=== PATIENT | female | born 1990 | race African-American/Black ===

== ENCOUNTER 2022-04-24 11:05 | Outpatient (CLI) | payer SELFPAY ==
[2022-04-24 12:21] VITALS: BP 104/64
== END 2022-04-24 23:59 | disposition home or self-care (01) ==
LOC: TRG 11:05 → UNDODISOB 13:35 → TRG 23:59 → EDSTATUS 06-24 09:18
PROVIDERS: ATTEND Obstetrics & Gynecology
DX: O46.93 Antepartum hemorrhage, unspecified, third trimester (principal); Z3A.41 41 weeks gestation of pregnancy
CPT/HCPCS: 59025; G0378; G0379

== ENCOUNTER 2022-04-25 16:02 | Inpatient (IN) | payer SELFPAY ==
[2022-04-25] MEDS ORDERED: LACTATED RINGERS 1,000 ML ONE (17:30)
[2022-04-25] MEDS ORDERED: AMPICILLIN/NS 2 GM/100 ML 2 GM/100 ML BAG IV ONE ×2 (17:31→18:18)
[2022-04-25] MEDS ORDERED: METHYLERGONOVINE MALEATE 0.2 MG/ML VIAL IM PRN (18:18)
[2022-04-25] MEDS ORDERED: CARBOPROST TROMETHAMINE 250 MCG/1 ML INJ IM PRN (18:18)
[2022-04-25] MEDS ORDERED: LIDOCAINE (2%) 20 MG/1 ML VIAL 20 ML MDV INFILTRATI ONE ×2 (18:18→22:50)
[2022-04-25] MEDS ORDERED: OXYTOCIN 10 UNIT/1 ML INJ IM PRN (18:18)
[2022-04-25] MEDS ORDERED: ONDANSETRON 4 MG/2 ML INJ IV PRN (18:18)
[2022-04-25] MEDS ORDERED: TERBUTALINE 1 MG/1 ML INJ SUB-Q PRN (18:18)
[2022-04-25] MEDS ORDERED: MINERAL OIL 30 ML ORAL LIQD PO PRN (18:18)
[2022-04-25] MEDS ORDERED: LOPERAMIDE 2 MG CAP PO PRN (18:18)
[2022-04-25] MEDS ORDERED: ACETAMINOPHEN 325 MG TAB PO PRN (18:18)
[2022-04-25] MEDS ORDERED: ePHEDrine SULFATE 50 MG/1 ML INJ IV PRN (18:18)
[2022-04-25] MEDS ORDERED: NALOXONE 0.4 MG/1 ML INJ IV PRN (18:18)
[2022-04-25] MEDS ORDERED: miSOPROStol 200 MCG TAB PR PRN (18:18)
[2022-04-25] MEDS ORDERED: BUTORPHANOL 2 MG/1 ML INJ IV PRN ×2 (18:18)
--- NOTE | 2022-04-25 18:28 | History and Physical Report ---
History of Present Illness Date of examination: 04/25/22 Date of admission: 04/25/22 16:02 Chief complaint: Presents for scheduled Postdates Induction History of present illness: Care at [facility] [employer]; course complicated by +Chlamydia (treated with Negative GI); and Size less than Dates. Past History Past Medical History: no pertinent history Past Surgical History: no surgical history EDI SPECIALIST History: chlamydia Family/Genetic History: none Social history: no significant social history - Obstetrical History Expected Date of Delivery: 04/17/22 Actual Gestation: 41 Week(s) 1 Day(s) : 1 Medications and Allergies Allergies Allergy/AdvReac Type Severity Reaction Status Date / Time No Known Allergies Allergy Unverified 04/24/22 12:32 Active Meds: Active Medications Acetaminophen (Acetaminophen 325 Mg Tab) 650 mg PO Q4H PRN PRN Reason: Pain, Mild (1-3) Butorphanol Tartrate (Butorphanol 2 Mg/1 Ml Inj) 1 mg IV Q2H PRN PRN Reason: Pain, Moderate(4-6) LABOR PAIN Butorphanol Tartrate (Butorphanol 2 Mg/1 Ml Inj) 2 mg IV Q2H PRN PRN Reason: Pain , Severe (7-10) Carboprost Tromethamine (Carboprost Tromethamine 250 Mcg/1 Ml Inj) 250 mcg IM ONCE PRN PRN Reason: Uterine Bleeding Ephedrine Sulfate (Ephedrine Sulfate 50 Mg/1 Ml Inj) 10 mg IV Q2M PRN PRN Reason: Hypotension Oxytocin/Sodium Chloride (Pitocin/Ns 30 Unit/500ml) 30 units in 500 mls @ 2 mls/hr IV TITR MARIVEL; Protocol Lactated Ringer's (Lactated Ringers) 1,000 mls @ 125 mls/hr IV DIRECT MARIVEL Oxytocin/Sodium Chloride (Pitocin/Ns 30 Unit/500ml) 30 units in 500 mls @ 40 mls/hr IV TITR MARIVEL; Protocol Ampicillin Sodium (Ampicillin/Ns 1 Gm/50 Ml) 1 gm in 50 mls @ 100 mls/hr IV Q4H MARIVEL; Protocol Ampicillin Sodium (Ampicillin/Ns 2 Gm/100 Ml) 2 gm in 100 mls @ 100 mls/hr IV ONCE ONE; Protocol Stop: 04/25/22 19:17 Lidocaine (Lidocaine (2%) 20 Mg/1 Ml Vial 20 Ml Mdv) 20 ml INFILTRATI ONCE ONE Stop: 04/25/22 18:19 Loperamide HCl (Loperamide 2 Mg Cap) 2 mg PO ONCE PRN PRN Reason: give with Hemabate Methylergonovine Maleate (Methylergonovine Maleate 0.2 Mg/Ml Vial) 0.2 mg IM ONCE PRN PRN Reason: Uterine Bleeding Mineral Oil (Mineral Oil 30 Ml Oral Liqd) 30 ml PO QHS PRN PRN Reason: Constipation Misoprostol (Misoprostol 200 Mcg Tab) 800 mcg MS ONCE PRN PRN Reason: Uterine Bleeding Naloxone HCl (Naloxone 0.4 Mg/1 Ml Inj) 0.1 mg IV Q2MIN PRN PRN Reason: Res Rate </= 8 or 02 SAT < 92% Ondansetron HCl (Ondansetron 4 Mg/2 Ml Inj) 4 mg IV Q8H PRN PRN Reason: Nausea And Vomiting Oxytocin (Oxytocin 10 Unit/1 Ml Inj) 10 unit IM ONCE PRN PRN Reason: Uterine Bleeding Terbutaline Sulfate (Terbutaline 1 Mg/1 Ml Inj) 0.25 mg SUB-Q ONCE PRN PRN Reason: Hyperstimulation/Hypertonicity Review of Systems All systems: negative - Vital Signs Vital signs: Vital Signs Pulse BP Pulse Ox 100 H 109/67 95 04/25/22 16:40 04/25/22 16:40 04/25/22 16:40 Temp Pulse Resp BP Pulse Ox 97.9 F 93 H 16 109/67 96 04/25/22 17:50 04/25/22 18:20 04/25/22 17:50 04/25/22 17:50 04/25/22 18:20 - Physical Exam Breasts: Positive: normal Cardiovascular: Regular rate Lungs: Positive: Clear to auscultation, Normal air movement Abdomen: Positive: normal appearance, soft, normal bowel sounds Genitourinary (Female): Positive: normal external genitalia, normal perenium Vagina: Positive: normal moisture Uterus: Positive: enlarged Anus/Rectum: Positive: normal perianal skin Extremities: Positive: normal - Obstetrical FHR: category 1 Uterine Contraction Monitor Mode: External Cervical Dilatation: 6 Cervical Effacement Percentage: 80 station: 0 Uterine Contraction Frequency (min): 5 Uterine Contraction Pattern: Regular Uterine Tone Measurement Phase: Resting Uterine Contraction Intensity: Moderate Results All other labs normal. Assessment and Plan A: IUP @41 1/ Weeks Category I Tracing GBS Unknown P: Admit to L&D Per Routine Orders Pitocin Augmentation GBS Prophylaxis
[2022-04-25] MEDS ORDERED: LACTATED RINGERS 1,000 ML IV SCH (18:30)
[2022-04-25 18:59] LABS: Hemoglobin 12.3 gm/dl (10.1-14.3); Mean Corpuscular HGB Conc 33 % (30-34); Mean Corpuscular Volume 93 fl (79-97); Platelet Count 150 K/mm3 (140-440); Red Blood Count 3.97 M/mm3 (3.65-5.03); Red Cell Distribution Width 13.9 % (13.2-15.2)
[2022-04-25] MEDS ORDERED: OXYTOCIN DRIP 30 UNITS/500 ML BAG IV SCH ×2 (19:00)
--- NOTE | 2022-04-25 21:13 | Progress Note ---
Assessment and Plan A: IUP @41 1/7 Weeks Category I Tracing GBS Unknown P: Continue Pitocin Augmentation Continue GBS Prophylaxis AROM Subjective - Subjective Date of service: 04/25/22 Interval history: Care at [facility] [employer] [employer]; course complicated by +Chlamydia (treated with Negative GI); and Size less than Dates. Patient reports: movement normal, contractions Objective - Vital Signs Vital Signs: Vital Signs - 12hr 04/25/22 04/25/22 04/25/22 16:40 16:45 16:50 Temperature Pulse Rate 100 H 100 H 97 H Respiratory Rate Blood Pressure 109/67 Blood Pressure [Right] O2 Sat by Pulse 95 96 95 Oximetry O2 Sat by Pulse Oximetry [ Bilateral] 04/25/22 04/25/22 04/25/22 16:51 16:55 17:00 Temperature Pulse Rate 102 H 90 93 H Respiratory Rate Blood Pressure Blood Pressure [Right] O2 Sat by Pulse 94 96 96 Oximetry O2 Sat by Pulse Oximetry [ Bilateral] 04/25/22 04/25/22 04/25/22 17:05 17:10 17:15 Temperature Pulse Rate 95 H 99 H 99 H Respiratory Rate Blood Pressure Blood Pressure [Right] O2 Sat by Pulse 94 96 95 Oximetry O2 Sat by Pulse Oximetry [ Bilateral] 04/25/22 04/25/22 04/25/22 17:19 17:20 17:25 Temperature Pulse Rate 94 H 96 H 99 H Respiratory Rate Blood Pressure Blood Pressure [Right] O2 Sat by Pulse 94 95 95 Oximetry O2 Sat by Pulse Oximetry [ Bilateral] 04/25/22 04/25/22 04/25/22 17:30 17:31 17:35 Temperature Pulse Rate 96 H 92 H 96 H Respiratory Rate Blood Pressure Blood Pressure [Right] O2 Sat by Pulse 95 94 95 Oximetry O2 Sat by Pulse Oximetry [ Bilateral] 04/25/22 04/25/22 04/25/22 17:37 17:40 17:45 Temperature Pulse Rate 92 H 89 91 H Respiratory Rate Blood Pressure Blood Pressure [Right] O2 Sat by Pulse 94 96 95 Oximetry O2 Sat by Pulse Oximetry [ Bilateral] 04/25/22 04/25/22 04/25/22 17:50 17:51 17:55 Temperature 97.9 F Pulse Rate 89 95 H 87 Respiratory 16 Rate Blood Pressure Blood Pressure 109/67 [Right] O2 Sat by Pulse 98 94 96 Oximetry O2 Sat by Pulse Oximetry [ Bilateral] 04/25/22 04/25/22 04/25/22 18:00 18:05 18:10 Temperature Pulse Rate 94 H 90 98 H Respiratory Rate Blood Pressure Blood Pressure [Right] O2 Sat by Pulse 96 95 96 Oximetry O2 Sat by Pulse Oximetry [ Bilateral] 04/25/22 04/25/22 04/25/22 18:15 18:20 18:25 Temperature Pulse Rate 82 93 H 87 Respiratory Rate Blood Pressure Blood Pressure [Right] O2 Sat by Pulse 97 96 96 Oximetry O2 Sat by Pulse 98 Oximetry [ Bilateral] 04/25/22 04/25/22 04/25/22 18:30 18:35 18:37 Temperature Pulse Rate 88 92 H 88 Respiratory Rate Blood Pressure Blood Pressure [Right] O2 Sat by Pulse 96 96 94 Oximetry O2 Sat by Pulse Oximetry [ Bilateral] 04/25/22 04/25/22 04/25/22 18:40 18:45 18:50 Temperature Pulse Rate 92 H 91 H 93 H Respiratory Rate Blood Pressure Blood Pressure [Right] O2 Sat by Pulse 93 94 94 Oximetry O2 Sat by Pulse Oximetry [ Bilateral] 04/25/22 04/25/22 04/25/22 18:51 18:55 18:56 Temperature Pulse Rate 93 H 92 H 93 H Respiratory Rate Blood Pressure Blood Pressure [Right] O2 Sat by Pulse 94 95 94 Oximetry O2 Sat by Pulse Oximetry [ Bilateral] 04/25/22 04/25/22 04/25/22 19:00 19:03 19:05 Temperature Pulse Rate 91 H 99 H 92 H Respiratory Rate Blood Pressure Blood Pressure [Right] O2 Sat by Pulse 95 94 94 Oximetry O2 Sat by Pulse Oximetry [ Bilateral] 04/25/22 04/25/22 04/25/22 19:10 19:15 19:17 Temperature Pulse Rate 90 96 H 95 H Respiratory Rate Blood Pressure Blood Pressure [Right] O2 Sat by Pulse 95 95 94 Oximetry O2 Sat by Pulse Oximetry [ Bilateral] 04/25/22 04/25/22 04/25/22 19:20 19:23 19:25 Temperature Pulse Rate 92 H 79 Respiratory Rate Blood Pressure Blood Pressure [Right] O2 Sat by Pulse 95 96 Oximetry O2 Sat by Pulse 95 Oximetry [ Bilateral] 04/25/22 04/25/22 04/25/22 19:26 19:27 19:30 Temperature Pulse Rate 80 78 76 Respiratory Rate Blood Pressure 95/56 Blood Pressure [Right] O2 Sat by Pulse 94 97 Oximetry O2 Sat by Pulse Oximetry [ Bilateral] 04/25/22 04/25/22 04/25/22 19:32 19:35 19:39 Temperature Pulse Rate 98 H 83 86 Respiratory Rate Blood Pressure Blood Pressure [Right] O2 Sat by Pulse 91 96 94 Oximetry O2 Sat by Pulse Oximetry [ Bilateral] 04/25/22 04/25/22 04/25/22 19:40 19:45 19:49 Temperature Pulse Rate 83 81 88 Respiratory Rate Blood Pressure Blood Pressure [Right] O2 Sat by Pulse 95 95 94 Oximetry O2 Sat by Pulse Oximetry [ Bilateral] 04/25/22 04/25/22 04/25/22 19:50 19:55 20:00 Temperature Pulse Rate 92 H 87 77 Respiratory Rate Blood Pressure Blood Pressure [Right] O2 Sat by Pulse 95 95 96 Oximetry O2 Sat by Pulse Oximetry [ Bilateral] 04/25/22 04/25/22 04/25/22 20:05 20:10 20:15 Temperature Pulse Rate 77 79 73 Respiratory Rate Blood Pressure Blood Pressure [Right] O2 Sat by Pulse 96 96 96 Oximetry O2 Sat by Pulse Oximetry [ Bilateral] 04/25/22 04/25/22 04/25/22 20:20 20:22 20:25 Temperature Pulse Rate 78 79 77 Respiratory Rate Blood Pressure Blood Pressure [Right] O2 Sat by Pulse 96 94 95 Oximetry O2 Sat by Pulse Oximetry [ Bilateral] 04/25/22 04/25/22 04/25/22 20:27 20:28 20:30 Temperature Pulse Rate 78 77 78 Respiratory Rate Blood Pressure 104/61 Blood Pressure [Right] O2 Sat by Pulse 93 96 Oximetry O2 Sat by Pulse Oximetry [ Bilateral] 04/25/22 04/25/22 04/25/22 20:34 20:35 20:39 Temperature Pulse Rate 77 76 86 Respiratory Rate Blood Pressure Blood Pressure [Right] O2 Sat by Pulse 93 96 94 Oximetry O2 Sat by Pulse Oximetry [ Bilateral] 04/25/22 04/25/22 04/25/22 20:40 20:45 20:47 Temperature Pulse Rate 84 89 87 Respiratory Rate Blood Pressure Blood Pressure [Right] O2 Sat by Pulse 96 95 94 Oximetry O2 Sat by Pulse Oximetry [ Bilateral] 04/25/22 04/25/22 04/25/22 20:50 20:55 21:00 Temperature Pulse Rate 86 80 84 Respiratory Rate Blood Pressure Blood Pressure [Right] O2 Sat by Pulse 95 96 97 Oximetry O2 Sat by Pulse Oximetry [ Bilateral] 04/25/22 04/25/22 21:05 21:09 Temperature 97.9 F Pulse Rate 83 Respiratory 18 Rate Blood Pressure Blood Pressure [Right] O2 Sat by Pulse 97 96 Oximetry O2 Sat by Pulse Oximetry [ Bilateral] - Exam Breasts: normal Cardiovascular: Regular rate Lungs: Normal air movement Abdomen: Present: soft, normal bowel sounds Uterus: Present: normal, firm, fundal height above umbilicus FHR: category 1 Uterine Contraction Monitor Mode: External Cervical Dilatation: 6.5 (AROM of a small amount of blood tinged fluids @2105) Cervical Effacement Percentage: 80 station: 0 Uterine Contraction Frequency (min): 2-3 Uterine Contraction Pattern: Regular Uterine Tone Measurement Phase: Resting Uterine Contraction Intensity: Moderate Extremities: normal - Labs Labs: Abnormal Labs 04/25/22 Unknown WBC 11.2 H Laboratory Results - last 24 hr 04/25/22 04/25/22 Unknown Unknown WBC 11.2 H RBC 3.97 Hgb 12.3 Hct 37.0 MCV 93 MCH 31 MCHC 33 RDW 13.9 Plt Count 150 Blood Type A POSITIVE Antibody Screen Negative
[2022-04-25] MEDS ORDERED: AMPICILLIN/NS 1 GM/50 ML 1 GM/50 ML BAG IV SCH (23:00)
--- NOTE | 2022-04-25 23:06 | Procedure Note ---
OB Delivery Note - Delivery Date of Delivery: 04/25/22 Care Team Assistant: JANET SEGURA - Vaginal Delivery presentation: vertex Delivery position: OA Delivery augmentation: rupture of membranes, pitocin Delivery monitor: external FHT, external uterine Route of delivery: Delivery placenta: spontaneous Delivery cord: 3 umbilical vessels Episiotomy: none Delivery laceration: 1st degree Delivery repair: vicryl Anesthesia: local, intravenous Delivery comments: Pt cried out urge to push. Primary RN called any available provider to room. Upon entering room, pt moaning, lying right lateral. Vomited, then began to bear down spontaneously, repositioned from right lateral to supine -head already delivered, shoulders and body delivered by this specifications writer without difficulty. of vigorous female , stimulated, dried and placed to maternal abdomen, mouth bulb suctioned by nurse, delayed cord clamping x3 min, 3vc doubly clamped and cut by FOB. pitocin initiated. Intact delivery of [place] placenta. Inspection of perineum revealed 1st degree laceration, repaired with 3.0CT vicryl with 14mL of % lidocaine. EBL: 200mL. Fundus firm, 2/U, bleeding scant, no clots. Counts performed with primary RN x2 and correct x2. YRIS Araiza updated. - A at 1 minute: 8 at 5 minutes: 9 Infant Gender: Female (6#9oz)
[2022-04-26] MEDS ORDERED: diphenhydrAMINE 25 MG CAP PO PRN (01:31)
[2022-04-26] MEDS ORDERED: PROMETHAZINE 25 MG TAB PO PRN (01:31)
[2022-04-26] MEDS ORDERED: MAGNESIUM HYDROXIDE (MOM) ORAL LIQD UDC PO PRN (01:31)
[2022-04-26] MEDS ORDERED: ONDANSETRON 4 MG/2 ML INJ IV PRN (01:31)
[2022-04-26] MEDS ORDERED: BENZOCAINE/MENTHOL 20/0.5% TOP SPRAY 56 GM TP PRN (01:31)
[2022-04-26] MEDS ORDERED: LANOLIN/ZINC/DIMETHICONE (LANSINOH) 7 GM TP PRN (01:31)
[2022-04-26] MEDS ORDERED: WITCH HAZEL/ GLYCERIN PAD TP PRN (01:31)
[2022-04-26] MEDS: IBUPROFEN 800 MG TAB PO SCH ×4 (01:44→23:50)
[2022-04-26] MEDS: PRENATAL VIT27-FE FUMARATE-FOLIC ACID VIT TAB PO SCH (12:33)
--- NOTE | 2022-04-26 15:20 | Progress Note ---
Assessment and Plan A: PPD0 OF VIABLE BABY GIRL 1ST DEGREE LAC [id number] P:CONTINUE CARE PER UNIT PROTOCOL ANTICIPATE DISCHARGE 04/28/22 Subjective - Subjective Date of service: 04/26/22 Principal diagnosis: IOL POST DATES Patient reports: appetite normal, voiding normally, pain well controlled, ambulating normally [place]: doing well, bottle feeding Objective - Vital Signs Latest vital signs: Vital Signs Temp Pulse Resp BP BP Pulse Ox Pulse Ox 04/26/22 12:46 98.2 F 93 H 18 96/61 98 04/26/22 08:24 98.2 F 89 18 108/69 98 04/26/22 08:10 98 04/26/22 05:21 98.6 F 86 18 103/60 96 04/26/22 01:27 100 04/26/22 01:13 98.5 F 99 H 17 133/78 96 04/26/22 00:53 98.5 F 18 96 04/26/22 00:51 99 H 97 04/26/22 00:46 102 H 96 04/26/22 00:41 99 H 96 04/26/22 00:36 109 H 96 04/26/22 00:31 101 H 96 04/26/22 00:27 101 H 113/64 04/26/22 00:26 102 H 96 04/26/22 00:21 99 H 95 04/26/22 00:16 90 96 04/26/22 00:11 94 H 96 04/26/22 00:06 91 H 97 04/26/22 00:01 94 H 97 04/25/22 23:50 89 97 04/25/22 23:45 98 H 96 04/25/22 23:40 98 H 97 04/25/22 23:35 99 H 97 04/25/22 23:30 97 H 98 04/25/22 23:27 94 H 120/64 04/25/22 23:25 95 H 98 04/25/22 23:20 91 H 97 04/25/22 23:15 110 H 97 04/25/22 23:13 102 H 93 04/25/22 23:10 106 H 97 04/25/22 23:05 95 H 98 04/25/22 23:00 95 H 97 04/25/22 22:55 100 H 97 04/25/22 22:50 97 H 97 06/18/22 22:45 95 H 95 061822 22:40 97 H 96 061822 22:35 92 H 95 061822 22:34 90 93 1822 22:30 78 96 061822 22:28 90 104/57 93 061822 22:25 90 95 061822 22:20 89 96 1822 22:19 87 94 061822 22:15 88 95 1822 22:12 99 H 94 061822 22:10 96 H 94 1822 22:07 85 94 061822 22:05 90 96 1822 22:00 87 96 22 21:57 89 94 1822 21:55 82 96 1822 21:50 90 95 1822 21:45 83 96 1822 21:40 89 96 1822 21:35 85 98 22 21:30 85 97 1822 21:27 79 108/68 1822 21:25 87 97 1822 21:20 88 97 1822 21:15 80 97 1822 21:10 86 97 1822 21:09 97.9 F 18 96 04/25/22 21:05 83 97 1822 21:00 84 97 1822 20:55 80 96 1822 20:50 86 95 1822 20:47 87 94 1822 20:45 89 95 1822 20:40 84 96 1822 20:39 86 94 1822 20:35 76 96 1822 20:34 77 93 0618/22 20:30 78 96 1822 20:28 77 93 061822 20:27 78 104/61 1822 20:25 77 95 1822 20:22 79 94 1822 20:20 78 96 061822 20:15 73 96 061822 20:10 79 96 1822 20:05 77 96 1822 20:00 77 96 18/22 19:55 87 95 04/25/22 19:50 92 H 95 04/25/22 19:49 88 94 18 19:45 81 95 04/25/22 19:40 83 95 04/25/22 19:39 86 94 04/25/22 19:35 83 96 04/25/22 19:32 98 H 91 04/25/22 19:30 76 97 04/25/22 19:27 78 95/56 04/25/22 19:26 80 94 04/25/22 19:25 79 96 04/25/22 19:23 95 04/25/22 19:20 92 H 95 04/25/22 19:17 95 H 94 04/25/22 19:15 96 H 95 04/25/22 19:10 90 95 04/25/22 19:05 92 H 94 04/25/22 19:03 99 H 94 04/25/22 19:00 91 H 95 04/25/22 18:56 93 H 94 04/25/22 18:55 92 H 95 04/25/22 18:51 93 H 94 04/25/22 18:50 93 H 94 04/25/22 18:45 91 H 94 04/25/22 18:40 92 H 93 04/25/22 18:37 88 94 04/25/22 18:35 92 H 96 04/25/22 18:30 88 96 04/25/22 18:25 87 96 04/25/22 18:20 93 H 96 98 04/25/22 18:15 82 97 04/25/22 18:10 98 H 96 04/25/22 18:05 90 95 04/25/22 18:00 94 H 96 04/25/22 17:55 87 96 04/25/22 17:51 95 H 94 04/25/22 17:50 97.9 F 89 16 109/67 98 18 17:45 91 H 95 1822 17:40 89 96 18 17:37 92 H 94 04/25/22 17:35 96 H 95 04/25/22 17:31 92 H 94 18 17:30 96 H 95 18 17:25 99 H 95 18 17:20 96 H 95 04/25/22 17:19 94 H 94 04/25/22 17:15 99 H 95 04/25/22 17:10 99 H 96 04/25/22 17:05 95 H 94 04/25/22 17:00 93 H 96 04/25/22 16:55 90 96 04/25/22 16:51 102 H 94 04/25/22 16:50 97 H 95 04/25/22 16:45 100 H 96 04/25/22 16:40 100 H 109/67 95 Intake and Output 04/25/22 04/26/22 04/26/22 23:59 07:59 15:59 Intake Total 260 840 Output Total 650 500 Balance -650 -240 840 Intake: Oral 360 Intake, Free Water 260 480 Output: Urine 650 500 Void 650 500 Other: Total, Intake Amount 240 Total, Output Amount 650 500 # Voids Void 1 Weight 129 lb Estimated Blood Loss 200 - Exam Breasts: Present: normal, other (PUMP AT BEDSIDE) Cardiovascular: Present: Regular rate Lungs: Present: Clear to auscultation Abdomen: Present: normal appearance Uterus: Present: tenderness, fundal height above umbilicus (INSTRUCTED TO EMPTY HER BLADDER) Extremities: Present: normal Deep Tendon Reflex Grade: Normal +2 - Labs Labs: Abnormal lab results 04/25/22 Range/Units Unknown WBC 11.2 H (4.5-11.0) K/mm3
[2022-04-26 16:30] LABS: Hematocrit 30.5 % (30.3-42.9); Hemoglobin 10.3 gm/dl (10.1-14.3)
[2022-04-27] MEDS ORDERED: TETANUS,DIPH,PERTUSS(ACELL) VACCINE 0.5 ML SYRINGE IM ONE (06:00)
[2022-04-27] MEDS: IBUPROFEN 800 MG TAB PO SCH (06:08)
[2022-04-27] MEDS: PRENATAL VIT27-FE FUMARATE-FOLIC ACID VIT TAB PO SCH (10:32)
--- NOTE | 2022-04-27 13:42 | Progress Note ---
Assessment and Plan PPD#1 doing well 1. Routine care and discharge home today Subjective Date of service: 04/27/22 Principal diagnosis: PPD#1 Interval history: pt has no complaints and wants to go home. vag bleed less than a period, pt is breast feeding and denies pelvic pain Objective - Constitutional Vitals: Vital Signs - 12hr 04/27/22 04/27/22 08:18 08:30 Temperature 98.0 F Pulse Rate 66 Respiratory 16 Rate Blood Pressure 94/53 O2 Sat by Pulse 97 Oximetry O2 Sat by Pulse 98 Oximetry [ Bilateral] General appearance: Present: no acute distress - Neck Neck: normal ROM - Respiratory Respiratory effort: normal - Cardiovascular Rhythm: regular Extremities: No edema - Gastrointestinal General gastrointestinal: Present: soft, non-tender - Genitourinary Female genitourinary: other (fundus firm 2cm below umbilicus, non-tender and lochia small) - Neurologic Neurologic: moves all extremities - Psychiatric Psychiatric: cooperative - Labs CBC & Chem 7: 04/26/22 16:14 Medications & Allergies - Medications Allergies/Adverse Reactions: Allergies No Known Allergies Allergy (Verified 04/26/22 02:14) Active Medications: Generic Name Dose Route Start Last Admin Trade Name Freq PRN Reason Stop Dose Admin Benzocaine/Menthol 1 spray 04/26/22 01:31 04/26/22 10:45 Benzocaine/Menthol 20/0.5% Top [place] 56 Gm TP 1 spray PRN PRN Administration Episiotomy Pain Bisacodyl 10 mg 04/26/22 01:31 Bisacodyl 10 Mg Rect Supp NH BID PRN Constipation Diphenhydramine HCl 25 mg 04/26/22 01:31 Diphenhydramine 25 Mg Cap PO Q6H PRN Itching Ibuprofen 800 mg 04/26/22 01:31 04/27/22 06:08 Ibuprofen 800 Mg Tab PO 800 mg Q6HR MARIVEL Administration Magnesium Hydroxide 30 ml 04/26/22 01:31 Magnesium Hydroxide (Mom) Oral Liqd Udc PO HS PRN Constipation Multi-Ingredient Ointment 1 applic 04/26/22 01:31 Lanolin/Zinc/Dimethicone (Lansinoh) 7 Gm TP PRN PRN Sore Nipples Multivitamins/Iron/Calcium 1 each 04/26/22 10:00 04/27/22 10:32 Dit46-Dr Fumarate-Folic Acid Vit Tab PO 1 each QDAY MARIVEL Administration Ondansetron HCl 4 mg 04/26/22 01:31 Ondansetron 4 Mg/2 Ml Inj IV Q8H PRN Nausea And Vomiting Promethazine HCl 25 mg 04/26/22 01:31 Promethazine 25 Mg Tab PO Q6H PRN Nausea And Vomiting Sodium Chloride 10 ml 04/26/22 01:31 Sodium Chloride 0.9% 10 Ml Flush Syringe IV PRN PRN LINE FLUSH Witch Candis/Glycerin 1 each 04/26/22 01:31 04/26/22 10:46 Witch Candis/ Glycerin Pad TP 1 each PRN PRN Administration Hemorrhoid/cleansing/soothing
--- NOTE | 2022-04-27 13:43 | Discharge Summary ---
Providers - Providers Date of Admission: 04/25/22 16:02 Attending physician: JOANNA AYON 04/26/22 01:31 Consult to Overhead Irrigator [CONS] Routine Reason For Exam: assistance with , SNS Primary care physician: JOANNA AYON Hospitalization Reason for admission: IUP at term Delivery: Episiotomy: none Laceration: 1st degree Other procedures: none complications: none baby: female Hospital course: Pt admitted term, given induction and had uncomplicated . course uneventful and pt discharged home on day#1 as desired. Condition at discharge: Good Disposition: 01 HOME / SELF CARE / HOMELESS - Discharge Diagnoses (1) (spontaneous vaginal delivery) Status: Acute Plan - Provider Discharge Summary Additional instructions: [] Smoking cessation referral if applicable(refer to patient education folder for contact #) [] Refer to [facility]'s [facility] Booklet Call your doctor immediately for: * Fever > 100.5 * Heavy vaginal bleeding ( >1 pad per hour) * Severe persistent headache * Shortness of breath * Reddened, hot, painful area to leg or breast * Drainage or odor from incision. * Keep incision clean and dry at all times and follow doctor's instructions regarding bathing/showering - Follow up plan Follow up: JOANNA AYON MD [Primary Care Provider] - 6 Weeks Forms: [facility] Discharge Summary
[2022-04-27 15:02] VITALS: BP 105/64
== END 2022-04-27 15:40 | disposition home or self-care (01) | DRG 807 ==
LOC: LD 16:02 → OB 04-26 01:05
PROVIDERS: ADMIT Obstetrics & Gynecology; ATTEND Obstetrics & Gynecology
PROC: 10E0XZZ Delivery of Products of Conception, External Approach (ICD-10-PCS; principal; 2022-04-25)
PROC: 0HQ9XZZ Repair Perineum Skin, External Approach (ICD-10-PCS; 2022-04-25)
PROC: 3E0234Z Introduction of Serum, Toxoid and Vaccine into Muscle, Percutaneous Approach (ICD-10-PCS; 2022-04-27)
DX: O48.0 Post-term pregnancy (principal); Z37.0 Single live birth; O70.0 First degree perineal laceration during delivery; Z3A.41 41 weeks gestation of pregnancy; Z20.822 Contact with and (suspected) exposure to COVID-19; Z23 Encounter for immunization
CPT/HCPCS: 36415; 85014; 85018; 85027; 86850; 86900; 86901; 99211; G0378; G0463; J0290; J0595; J2590; J7120; U0003